=== PATIENT | male | born 1955 ===

== ENCOUNTER 2017-08-04 17:44 | Emergency (ER) | payer MEDICAID ==
[2017-08-04 18:14] VITALS: BMI 28.2
--- NOTE | 2017-08-04 19:12 | ED PDOC ---
HPI: CCC, URI, Sore Throat Time Seen by Provider: 08/04/17 19:11 Chief Complaint (Nursing): ENT Problem Chief Complaint (Provider): sore throat History Per: Patient (62 y/o male here with sore throat ongoing x 2 months. Patient states he has had strep in past and was treated for it with amoxicillin. Denies any vomitin/fevers/chills. Able to swallow without difficulty.) Past Medical History Reviewed: Historical Data, Nursing Documentation, Vital Signs Vital Signs: Last Vital Signs Temp 98 F 08/04/17 18:13 Pulse 92 H 08/04/17 18:13 Resp 16 08/04/17 18:13 BP 147/79 08/04/17 18:13 Pulse Ox 97 08/04/17 19:12 - Family History Family History: States: No Known Family Hx - Home Medications Home Medications: Ambulatory Orders Medication Instructions Recorded Naproxen 375 mg PO Q8 PRN #21 tablet 08/04/17 - Allergies Allergies/Adverse Reactions: Allergies Allergy/AdvReac Type Severity Reaction Status Date / Time No Known Allergies Allergy Verified 08/04/17 18:14 Review of Systems ROS Statement: Except As Marked, All Systems Reviewed And Found Negative Physical Exam - Reviewed Nursing Documentation Reviewed: Yes Vital Signs Reviewed: Yes - Physical Exam Appears: Positive for: Well, Non-toxic, No Acute Distress Head Exam: Positive for: ATRAUMATIC, NORMAL INSPECTION, NORMOCEPHALIC Skin: Positive for: Normal Color, Warm, DRY Eye Exam: Positive for: EOMI, Normal appearance, PERRL ENT: Positive for: Normal ENT Inspection Neck: Positive for: Normal, Painless ROM Cardiovascular/Chest: Positive for: Regular Rate, Rhythm Respiratory: Positive for: CNT, Normal Breath Sounds Gastrointestinal/Abdominal: Positive for: Normal Exam, Soft Back: Positive for: Normal Inspection Extremity: Positive for: Normal ROM Neurologic/Psych: Positive for: Alert, Oriented - ECG O2 Sat by Pulse Oximetry: 97 - Progress ED Course And Treament: RAPID STREP: NEGATIVE THROAT CX SENT PATIENT ADVISED F/U WITH ENT FOR FURTHER EVALUATION Disposition - Clinical Impression Clinical Impression: Throat pain - Patient ED Disposition Is Patient to be Admitted: No - Disposition Referrals: Matthew Crawford MD [Staff Provider] - Disposition: Routine/Home Disposition Time: 19:53 Condition: FAIR Prescriptions: Naproxen 375 mg PO Q8 PRN #21 tablet PRN Reason: Pain, Moderate (4-7) Instructions: Sore Throat, Adult (DC) Print Language: AUSTR[place]
[2017-08-04 20:38] VITALS: BP 134/74; PULSE 86; RESP 18; TEMP 98.4; O2SAT 100
== END 2017-08-04 20:20 | disposition home or self-care (01) ==
LOC: H.ER 17:44
DX: R07.0 Pain in throat (principal)